=== PATIENT | male | born 1960 | race Caucasian/White ===

== ENCOUNTER 2025-08-31 12:15 | Emergency (ER) | payer BC, MEDICARE ==
[2025-08-31] MEDS ORDERED: Boostrix 0.5 ML (Tdap) VIAL (>/=7 yrs of age) ONE (12:34)
[2025-08-31] MEDS ORDERED: Lidocaine 1% (PF) 30 ML VIAL ONE (13:02)
[2025-08-31] MEDS ORDERED: Bacitracin 1 PK ONE (13:23)
== END 2025-08-31 13:35 | disposition home or self-care (01) ==
LOC: MADERS 12:15
DX: S81.811A Laceration without foreign body, right lower leg, initial encounter (principal); E66.9 Obesity, unspecified; F17.220 Nicotine dependence, chewing tobacco, uncomplicated; Z23 Encounter for immunization; Z79.82 Long term (current) use of aspirin; W26.8XXA Contact with other sharp object(s), not elsewhere classified, initial encounter
CPT/HCPCS: 90715; J2003; 12002; 90471